=== PATIENT | female | born 1990 | race Caucasian/White ===

== ENCOUNTER 2019-07-18 11:47 | Emergency (ER) | payer BC ==
[2019-07-18] MEDS: AZITHROMYCIN 500 MG TAB PO (13:13)
[2019-07-18] MEDS: LIDOCAINE 1% (MDV) 20 ML INJ SC (13:13)
[2019-07-18] MEDS: CEFTRIAXONE 250 MG INJ IM (13:13)
== END 2019-07-18 13:28 | disposition home or self-care (01) ==
LOC: FTE 11:47
DX: N39.0 Urinary tract infection, site not specified (principal)
CPT/HCPCS: 81003; 81025; 96372; 99284-25